=== PATIENT | female | born 1945 | race Two or more races ===

== ENCOUNTER 2018-04-02 08:10 | Emergency (ER) | payer OTHER ==
[~2018-04-02] VITALS: Ht 165.1 cm; Wt 40.4 kg
[2018-04-02] MEDS ORDERED: ATIVAN1 M1 PO (08:17)
[2018-04-02] MEDS ORDERED: COZAAR100 MG PO (08:18)
[2018-04-02] MEDS ORDERED: SYNTHROID50 MCG PO (08:18)
== END 2018-04-02 11:54 | disposition home or self-care (01) ==
LOC: ER 08:10
DX: K29.60 Other gastritis without bleeding (principal)

== ENCOUNTER 2018-04-13 08:13 | Outpatient (CLI) | payer OTHER ==
[~2018-04-13 08:13] MED LIST: ATIVAN1 M1 PO; COZAAR100 MG PO; SYNTHROID50 MCG PO
== END 2018-04-13 08:15 | disposition home or self-care (01) ==
LOC: RX STUDY 08:13
DX: R13.12 Dysphagia, oropharyngeal phase (principal)

== ENCOUNTER 2018-12-17 08:33 | Emergency (ER) | payer OTHER ==
[~2018-12-17] VITALS: Ht 165.1 cm; Wt 40.8 kg
[2018-12-17] MEDS ORDERED: PEPCID20 MG (08:52)
== END 2018-12-17 14:48 | disposition home or self-care (01) ==
LOC: ER 08:33
DX: K52.89 Other specified noninfective gastroenteritis and colitis (principal)